=== PATIENT | female | born 1945 | race Caucasian/White ===

== ENCOUNTER 2016-09-05 13:52 | Emergency (ER) | payer MEDICARE, OTHER ==
[2016-09-05] MEDS ORDERED: LORazepam 0.5 MG Tab ONE ×2 (14:00→14:32)
[2016-09-05 14:20] VITALS: BP 144/67
--- NOTE | 2016-09-05 16:42 | ER ---
HISTORY OF PRESENT ILLNESS: A 71-year-old lady here with complaints of feeling depressed. She has been feeling this way for a while, but the last couple of days it has gotten worse. She has no thoughts of harming herself or harming others. She just does not feel good. She does not feel like doing anything, and wants to know if she can get some help. The patient states she is under a fair amount of stress. Her has had some medical issues, it was thought he would not survive last winter, but he did pull through and is actually back home now. The patient has found this whole process quite stressful. Secondly, there are some other family stress factors. Some of her kids have become and she feels sorry for them and the grandchildren. The patient has been taking citalopram for 10 or 12 years. She states that usually it seems like it helps, but she has had other years where springtime has been a sad time for her as well. The patient has not been seen recently for any of these issues. OBJECTIVE: GENERAL APPEARANCE: The patient is awake and alert, slightly quiet, but she does make good eye contact and answers questions appropriately. VITAL SIGNS: Reviewed. Blood pressure 144/67. PHYSICAL EXAM: Otherwise deferred. DIAGNOSIS: Depression with anxiety. TREATMENT PLAN: I advised the patient that she is taking the highest dose of citalopram, she can safely take 40 mg a day. I will add Ativan 0.5 mg. She is to take 1 or 2 tablets every 8 hours. I advised her to take this regularly for the next day or so and then, start going p.r.n. I do want the patient to follow up in the clinic next week for a recheck, and she probably should consider some counseling as well. The patient agrees to do this. She has no further questions. NONA/MODL /[id number]
== END 2016-09-05 14:40 | disposition home or self-care (01) ==
LOC: LB.ED 13:52
DX: F41.8 Other specified anxiety disorders (principal)
CPT/HCPCS: 99282; 99283; A9270

== ENCOUNTER 2018-03-07 22:54 | Emergency (ER) | payer MEDICARE, OTHER ==
[2018-03-07] MEDS ORDERED: Albuterol 8 GM Inhaler INH ONE (23:50)
[2018-03-07] MEDS ORDERED: predniSONE 10 MG Tab ONE (23:50)
[2018-03-07] MEDS: Albuterol/Ipratropium 3.0-0.5 MG/3 ML Neb Soln NEB ONE (23:53)
--- NOTE | 2018-03-08 01:01 | ER ---
HISTORY OF PRESENT ILLNESS: This is a 73-year-old lady who comes in by ambulance with complaints of shortness of breath and coughing. She states she has had a cold for about 3 days, started on Tuesday. When she became short of breath tonight, she got worried and called the ambulance. The patient states her cough is mostly dry. She does feel tight and short of breath especially with coughing. She has not been running a fever to her knowledge. She denies any history of asthma or bronchitis. The patient is a smoker. She does not use any inhaler medication. Ambulance crew reports that her O2 sats were in the mid 80s when they arrived. They did apply oxygen when her sats came up to 99%. The oxygen was removed before arriving at the emergency room, and the patient did not have any respiratory distress after this. OBJECTIVE: GENERAL APPEARANCE: The patient is awake and alert. She has a tight cough that is quite frequent. No shortness of breath at this time. VITAL SIGNS: Reviewed. Blood pressure 150/78, O2 sats are 95% on room air. HEENT: Oral mucous membranes moist. NECK: Supple. LUNGS: Reveal reduced air exchange throughout the lung oneill and wheezes are scattered throughout the lung oneill. Deep breathing does induce coughing as well. CARDIAC: Heart sounds distinct. S1 and S2 present. No murmurs. ABDOMEN: Soft, nontender. Bowel sounds are present. SKIN: Warm and dry. INITIAL TREATMENT: DuoNeb was given to the patient. This significantly improved her lung function. Her air exchange improved and just end-expiratory scattered wheezes now are noted. LAB AND X-RAY: Chest x-ray is obtained. I do not see any obvious pneumonia. LABS: Include a CBC which shows a normal white count and neutrophils are normal. Monos are slightly elevated. Comprehensive metabolic panel is normal. DIAGNOSIS: Asthmatic bronchitis. TREATMENT PLAN: The patient will be discharged home. Her daughter is here with her. She will be given an albuterol inhaler, she is to take 2 puffs every 4 hours as needed for shortness of breath, coughing, or wheezing; and I will give her prednisone 30 mg a day for 3 days, then 20 mg for 2 days, and then 10 mg for 2 days. Followup should be within a couple of days with her primary care provider for recheck or as needed. CRS/MODL /[id number]
[2018-03-08 02:45] VITALS: BP 150/78
--- NOTE | 2018-03-08 08:53 | CR ---
AP PORTABLE CHEST, 03/08/18 Comparison is made to a prior exam dated 09/12/17. The patient is status post median sternotomy. The heart size is normal. There is calcification of the aortic arch. The lungs are mildly hyperexpanded, but clear. No pneumothorax. No pleural effusions. No evidence of acute intrathoracic disease. [id number]
== END 2018-03-08 00:39 | disposition home or self-care (01) ==
LOC: LB.ED 22:54
DX: J45.909 Unspecified asthma, uncomplicated (principal)
CPT/HCPCS: 36415; 71045; 80053; 85025; 99285-25; A0425; A0429; A9270-GY; J7620-GY

== ENCOUNTER 2021-08-04 13:15 | Emergency (ER) | payer MEDICARE, SELFPAY | END 2021-08-04 15:30 | disposition home or self-care (01) | LOC: LB.ED 13:15 | DX: J18.9 Pneumonia, unspecified organism (principal); I25.10 Atherosclerotic heart disease of native coronary artery without angina pectoris; E78.00 Pure hypercholesterolemia, unspecified; I10 Essential (primary) hypertension; Z72.0 Tobacco use; Z88.2 Allergy status to sulfonamides; Z88.8 Allergy status to other drugs, medicaments and biological substances; Z79.82 Long term (current) use of aspirin; Z79.899 Other long term (current) drug therapy; Z20.822 Contact with and (suspected) exposure to COVID-19 | CPT/HCPCS: 71046; 99285-25; U0002 ==

== ENCOUNTER 2022-01-04 01:16 | Emergency (ER) | payer MEDICARE ==
[2022-01-04] MEDS ORDERED: Acetaminophen 500 MG Tab PO ONE (01:48)
[2022-01-04] MEDS ORDERED: Orphenadrine 60 MG/2 ML Inj IM ONE (01:51)
[2022-01-04] MEDS ORDERED: Gabapentin 300 MG Cap PO ONE (01:51)
[2022-01-04] MEDS ORDERED: Dexamethasone 4 MG/ML SDV IVPUSH ONE (01:53)
[2022-01-04] MEDS ORDERED: Sodium Chloride 0.9% 10 ML Syringe FLUSH PRN (01:55)
[2022-01-04] MEDS ORDERED: Ketamine 200 MG/20 ML MDV ONE ×2 (01:57→02:18)
[2022-01-04] MEDS ORDERED: Dexamethasone 4 MG/ML SDV ONE (02:17)
[2022-01-04] MEDS ORDERED: Orphenadrine 60 MG/2 ML Inj ONE (02:28)
== END 2022-01-04 03:20 | disposition home or self-care (01) ==
LOC: LB.ED 01:16
DX: M54.50 Low back pain, unspecified (principal); I25.10 Atherosclerotic heart disease of native coronary artery without angina pectoris; E78.00 Pure hypercholesterolemia, unspecified; I10 Essential (primary) hypertension; Z95.1 Presence of aortocoronary bypass graft; Z88.2 Allergy status to sulfonamides; Z88.8 Allergy status to other drugs, medicaments and biological substances; Z79.82 Long term (current) use of aspirin; Z79.899 Other long term (current) drug therapy
CPT/HCPCS: 96372; 96374; 99282; 99283-25; A0425; A0429; A9270-GY; J1100; J2360; J3490

== ENCOUNTER 2022-01-07 21:55 | Emergency (ER) | payer MEDICARE ==
[2022-01-07] MEDS: Acetaminophen/oxyCODONE 325-5 MG Tab PO PRN ×2 (22:35→22:37)
[2022-01-07] MEDS ORDERED: Acetaminophen/oxyCODONE 325-5 MG Tab ONE (22:47)
== END 2022-01-07 22:47 | disposition home or self-care (01) ==
LOC: LB.ED 21:55
DX: M54.50 Low back pain, unspecified (principal); I25.10 Atherosclerotic heart disease of native coronary artery without angina pectoris; I10 Essential (primary) hypertension; F17.210 Nicotine dependence, cigarettes, uncomplicated; Z88.8 Allergy status to other drugs, medicaments and biological substances; Z88.2 Allergy status to sulfonamides; Z79.899 Other long term (current) drug therapy; Z79.82 Long term (current) use of aspirin
CPT/HCPCS: 99282; 99283; A9270-GY

== ENCOUNTER 2022-01-10 08:39 | Emergency (ER) | payer MEDICARE ==
[2022-01-10] MEDS ORDERED: Sodium Chloride 0.9% 10 ML Syringe FLUSH PRN (10:24)
[2022-01-10] MEDS ORDERED: Sodium Chloride 0.9% 50 ML SDV FLUSH ONE (10:25)
[2022-01-10] MEDS ORDERED: Iopamidol 755 Mg/ML 100 ML Bottle IV SCH (10:30)
[2022-01-10] MEDS ORDERED: Enoxaparin 80 MG/0.8 ML Syringe SUBCUT ONE (11:50)
[2022-01-10 18:24] VITALS: BP 159/80; PULSE 89
== END 2022-01-10 13:50 | disposition home or self-care (01) ==
LOC: LB.ED 08:39
DX: R06.02 Shortness of breath (principal); I25.10 Atherosclerotic heart disease of native coronary artery without angina pectoris; I10 Essential (primary) hypertension; F17.210 Nicotine dependence, cigarettes, uncomplicated; Z88.8 Allergy status to other drugs, medicaments and biological substances; Z88.2 Allergy status to sulfonamides; Z79.899 Other long term (current) drug therapy; Z79.82 Long term (current) use of aspirin
CPT/HCPCS: 36415; 71250; 74176; 80053; 81001; 83690; 84484; 85025; 85379; 93005; 93010; 96372; 99282; 99285; J1650

== ENCOUNTER 2022-01-30 11:16 | Emergency (ER) | payer MEDICARE ==
[2022-01-30] MEDS: LORazepam 1 MG Tab PO ONE (11:57)
== END 2022-01-30 12:03 | disposition home or self-care (01) ==
LOC: LB.ED 11:16
DX: F32.A Depression, unspecified (principal); R45.851 Suicidal ideations; I25.10 Atherosclerotic heart disease of native coronary artery without angina pectoris; E78.00 Pure hypercholesterolemia, unspecified; I10 Essential (primary) hypertension; E03.9 Hypothyroidism, unspecified; Z88.8 Allergy status to other drugs, medicaments and biological substances; Z88.2 Allergy status to sulfonamides; Z79.82 Long term (current) use of aspirin; Z79.899 Other long term (current) drug therapy; Z95.1 Presence of aortocoronary bypass graft; Z87.891 Personal history of nicotine dependence
CPT/HCPCS: 99284; A9270; 99282

== ENCOUNTER 2022-02-04 13:39 | Emergency (ER) | payer MEDICARE ==
[2022-02-04 14:48] VITALS: BP 154/79; PULSE 90
[2022-02-04 15:02] LABS: ESTIMATED GFR 90 mL/min (>60)
== END 2022-02-04 19:42 ==
LOC: LB.ED 13:39
DX: R45.851 Suicidal ideations (principal); F32.A Depression, unspecified; E03.9 Hypothyroidism, unspecified; I10 Essential (primary) hypertension; I25.10 Atherosclerotic heart disease of native coronary artery without angina pectoris; E78.00 Pure hypercholesterolemia, unspecified; Z79.899 Other long term (current) drug therapy; Z20.822 Contact with and (suspected) exposure to COVID-19; Z88.2 Allergy status to sulfonamides; Z88.8 Allergy status to other drugs, medicaments and biological substances
CPT/HCPCS: 36415; 80053; 80307; 81003; 85025; 99284; U0002

== ENCOUNTER 2022-02-17 18:10 | Emergency (ER) | payer MEDICARE ==
[2022-02-17] MEDS ORDERED: LORazepam 1 MG Tab ONE (18:30)
[2022-02-17] MEDS ORDERED: LORazepam 1 MG Tab PO ONE (18:46)
== END 2022-02-17 18:45 | disposition home or self-care (01) ==
LOC: LB.ED 18:10
DX: F32.9 Major depressive disorder, single episode, unspecified (principal); F41.9 Anxiety disorder, unspecified; I25.10 Atherosclerotic heart disease of native coronary artery without angina pectoris; J44.9 Chronic obstructive pulmonary disease, unspecified; I10 Essential (primary) hypertension; E78.00 Pure hypercholesterolemia, unspecified; Z88.2 Allergy status to sulfonamides; Z88.8 Allergy status to other drugs, medicaments and biological substances; Z79.899 Other long term (current) drug therapy; Z79.82 Long term (current) use of aspirin
CPT/HCPCS: 99283; A9270-GY

== ENCOUNTER 2022-04-30 09:17 | Emergency (ER) | payer MEDICARE ==
[2022-04-30] MEDS: Albuterol/Ipratropium 3.0-0.5 MG/3 ML Neb Soln ONE ×2 (10:00→10:57)
[2022-04-30] MEDS ORDERED: Albuterol/Ipratropium 3.0-0.5 MG/3 ML Neb Soln NEB STA (11:02)
[2022-04-30] MEDS ORDERED: Azithromycin 250 MG Tab ONE (23:00)
== END 2022-04-30 11:20 | disposition home or self-care (01) ==
LOC: LB.ED 09:17 → SUPCPDRO 09:17 → LB.ED 11:20
DX: J44.1 Chronic obstructive pulmonary disease with (acute) exacerbation (principal); F17.210 Nicotine dependence, cigarettes, uncomplicated; I25.10 Atherosclerotic heart disease of native coronary artery without angina pectoris; E78.00 Pure hypercholesterolemia, unspecified; I10 Essential (primary) hypertension; E03.9 Hypothyroidism, unspecified; Z95.1 Presence of aortocoronary bypass graft; Z88.2 Allergy status to sulfonamides; Z88.8 Allergy status to other drugs, medicaments and biological substances; Z79.82 Long term (current) use of aspirin; Z79.899 Other long term (current) drug therapy; Z20.822 Contact with and (suspected) exposure to COVID-19
CPT/HCPCS: 36415; 71045; 80048; 83735; 83880; 84484; 85027; 94640; 99285; A9270-GY; J7620; U0002

== ENCOUNTER 2022-10-29 15:52 | Emergency (ER) | payer MEDICARE ==
[2022-10-29] MEDS ORDERED: Sodium Chloride 0.9% 10 ML Syringe FLUSH PRN (17:02)
[2022-10-29 17:14] LABS: HEMATOCRIT 38.6 % (37.0-47.0); HEMOGLOBIN 13.3 g/dL (11.5-16.5); MEAN CORPUSCULAR HEMOGLOBIN 33.2 pg (27.0-32.0); MEAN CORPUSCULAR HGB CONC 34.5 g/dL (31.0-35.0); MEAN PLATELET VOLUME 10.4 fL (6.0-10.0); RED BLOOD CELL COUNT 4.01 M/uL (3.80-5.80); RED CELL DISTRIBUTION WIDTH 14.1 % (11.0-16.0); WHITE BLOOD CELL COUNT,WBC 10.3 K/uL (4.0-11.0)
[2022-10-29] MEDS ORDERED: Albuterol/Ipratropium 3.0-0.5 MG/3 ML Neb Soln NEB STA (17:34)
[2022-10-29] MEDS ORDERED: Albuterol/Ipratropium 3.0-0.5 MG/3 ML Neb Soln ONE (17:37)
[2022-10-29 17:43] LABS: CALCIUM 8.8 mg/dL (8.5-10.1); CARBON DIOXIDE,CO2 28.9 mmol/L (21.0-32.0); CREATININE 0.81 mg/dL (0.55-1.02); EST CRCL DRUG DOSING (CG) 51.02 mL/min; MAGNESIUM 1.8 mg/dL (1.8-2.4); PHOSPHORUS 3.6 mg/dL (2.5-4.9); POTASSIUM,K 3.9 mmol/L (3.5-5.1); TROPONIN I HIGH SENSITIVITY 10.4 pg/ml (<=60.4)
== END 2022-10-29 19:20 | disposition home or self-care (01) ==
LOC: LB.ED 15:52
DX: J44.1 Chronic obstructive pulmonary disease with (acute) exacerbation (principal); E78.00 Pure hypercholesterolemia, unspecified; I10 Essential (primary) hypertension; E03.9 Hypothyroidism, unspecified; F17.210 Nicotine dependence, cigarettes, uncomplicated; Z88.2 Allergy status to sulfonamides; Z88.8 Allergy status to other drugs, medicaments and biological substances; Z79.82 Long term (current) use of aspirin; Z79.899 Other long term (current) drug therapy
CPT/HCPCS: 36415; 71045; 80048; 83735; 83880; 84100; 84484; 85027; 85379; 93005; 94640; 99285; J7620

== ENCOUNTER 2023-05-26 09:49 | Day surgery (SDC) | payer MEDICARE ==
[~2023-05-26 09:49] MED LIST: Metoclopramide 10 MG/2 ML SDV IV PRN
[2023-05-26] MEDS: Sodium Chloride 0.9% 1,000 ML IV SCH (10:48)
[2023-05-26] MEDS ORDERED: Propofol 1,000 MG/100 ML SDV ONE (11:30)
[2023-05-26 11:49] VITALS: BP 148/81; PULSE 56
== END 2023-05-26 12:56 | disposition home or self-care (01) ==
LOC: LB.SDS 09:49
PROVIDERS: ATTEND Surgery
DX: R19.7 Diarrhea, unspecified (principal); J44.9 Chronic obstructive pulmonary disease, unspecified; I10 Essential (primary) hypertension; I25.810 Atherosclerosis of coronary artery bypass graft(s) without angina pectoris; E78.5 Hyperlipidemia, unspecified; F33.9 Major depressive disorder, recurrent, unspecified; E03.8 Other specified hypothyroidism; Z95.1 Presence of aortocoronary bypass graft; Z79.890 Hormone replacement therapy; Z79.82 Long term (current) use of aspirin; Z79.899 Other long term (current) drug therapy; Z88.2 Allergy status to sulfonamides; Z88.5 Allergy status to narcotic agent
CPT/HCPCS: J2704; J7030

== ENCOUNTER 2023-05-31 07:14 | Emergency (ER) | payer MEDICARE ==
[2023-05-31] MEDS ORDERED: Furosemide 20 MG Tab PO ONE (07:35)
[2023-05-31 08:05] LABS: BASOPHILS ABSOLUTE AUTO 0.04 K/uL (0.02-0.10); BASOPHILS PERCENT AUTO 0.4 % (0.0-0.5); EOSINOPHILS ABSOLUTE AUTO 0.24 K/uL (0.04-0.40); EOSINOPHILS PERCENT AUTO 2.6 % (1.0-5.0); HEMATOCRIT 37.3 % (37.0-47.0); HEMOGLOBIN 12.3 g/dL (11.5-16.5); LYMPHOCYTES ABSOLUTE AUTO 1.87 K/uL (1.50-4.00); LYMPHOCYTES PERCENT AUTO 20.5 % (20.0-40.0); MEAN CORPUSCULAR HEMOGLOBIN 32.1 pg (27.0-32.0); MEAN CORPUSCULAR VOLUME 97 fL (76-96); MEAN PLATELET VOLUME 10.9 fL (6.0-10.0); MONOCYTES PERCENT AUTO 8.8 % (3.0-10.0); NEUTROPHILS ABSOLUTE AUTO 6.17 K/uL (2.00-7.50); NEUTROPHILS PERCENT AUTO 67.7 % (45.0-70.0); PLATELET COUNT,PLT 146 K/uL (150-500); RED BLOOD CELL COUNT 3.83 M/uL (3.80-5.80); RED CELL DISTRIBUTION WIDTH 13.6 % (11.0-16.0); WHITE BLOOD CELL COUNT,WBC 9.1 K/uL (4.0-11.0)
[2023-05-31 08:36] LABS: A/G RATIO 0.9 (0.8-2.0); ANION GAP 12.2 mmol/L (5.0-15.0); BILIRUBIN TOTAL 1.2 mg/dL (0.0-1.0); CALCIUM 8.9 mg/dL (8.5-10.1); CARBON DIOXIDE,CO2 27.5 mmol/L (21.0-32.0); CREATININE 0.63 mg/dL (0.55-1.02); EST CRCL DRUG DOSING (CG) 61.86 mL/min; POTASSIUM,K 3.7 mmol/L (3.5-5.1); PROTEIN TOTAL,TP 6.3 g/dL (6.4-8.2)
== END 2023-05-31 09:18 | disposition home or self-care (01) ==
LOC: LB.ED 07:14
DX: R79.89 Other specified abnormal findings of blood chemistry (principal); R60.0 Localized edema; I10 Essential (primary) hypertension; E78.00 Pure hypercholesterolemia, unspecified; J44.9 Chronic obstructive pulmonary disease, unspecified; I25.10 Atherosclerotic heart disease of native coronary artery without angina pectoris; E03.9 Hypothyroidism, unspecified; Z79.82 Long term (current) use of aspirin; Z90.710 Acquired absence of both cervix and uterus; Z88.8 Allergy status to other drugs, medicaments and biological substances; Z88.2 Allergy status to sulfonamides; Z79.899 Other long term (current) drug therapy
CPT/HCPCS: 36415; 80053; 83880; 85025; 99283; A9270-GY

== ENCOUNTER 2023-07-16 23:43 | Emergency (ER) | payer MEDICARE ==
[2023-07-16] MEDS ORDERED: Sodium Chloride 0.9% 10 ML Syringe FLUSH PRN (23:56)
[2023-07-17 00:26] LABS: BASOPHILS ABSOLUTE AUTO 0.05 K/uL (0.02-0.10); BASOPHILS PERCENT AUTO 0.4 % (0.0-0.5); EOSINOPHILS PERCENT AUTO 1.7 % (1.0-5.0); HEMATOCRIT 34.3 % (37.0-47.0); HEMOGLOBIN 12.3 g/dL (11.5-16.5); LYMPHOCYTES ABSOLUTE AUTO 1.89 K/uL (1.50-4.00); LYMPHOCYTES PERCENT AUTO 16.1 % (20.0-40.0); MEAN CORPUSCULAR HEMOGLOBIN 31.7 pg (27.0-32.0); MEAN CORPUSCULAR HGB CONC 35.9 g/dL (31.0-35.0); MEAN CORPUSCULAR VOLUME 88 fL (76-96); MEAN PLATELET VOLUME 9.7 fL (6.0-10.0); MONOCYTES ABSOLUTE AUTO 0.81 K/uL (0.20-0.80); MONOCYTES PERCENT AUTO 6.9 % (3.0-10.0); NEUTROPHILS ABSOLUTE AUTO 8.82 K/uL (2.00-7.50); NEUTROPHILS PERCENT AUTO 74.9 % (45.0-70.0); PLATELET COUNT,PLT 216 K/uL (150-500); RED BLOOD CELL COUNT 3.88 M/uL (3.80-5.80); RED CELL DISTRIBUTION WIDTH 13.5 % (11.0-16.0); WHITE BLOOD CELL COUNT,WBC 11.8 K/uL (4.0-11.0)
[2023-07-17 00:41] LABS: ALBUMIN 3.4 g/dL (3.4-5.0); ANION GAP 10.9 mmol/L (5.0-15.0); BILIRUBIN TOTAL 0.6 mg/dL (0.0-1.0); BUN/CREATININE RATIO 29.8 (6-25); CALCIUM 9.2 mg/dL (8.5-10.1); CARBON DIOXIDE,CO2 29.2 mmol/L (21.0-32.0); CREATININE 1.04 mg/dL (0.55-1.02); EST CRCL DRUG DOSING (CG) 35.83 mL/min; POTASSIUM,K 4.1 mmol/L (3.5-5.1); PROTEIN TOTAL,TP 6.9 g/dL (6.4-8.2)
== END 2023-07-17 03:07 | disposition home or self-care (01) ==
LOC: LB.ED 23:43
DX: R07.89 Other chest pain (principal); I10 Essential (primary) hypertension; I25.10 Atherosclerotic heart disease of native coronary artery without angina pectoris; J44.9 Chronic obstructive pulmonary disease, unspecified; E78.00 Pure hypercholesterolemia, unspecified; E03.9 Hypothyroidism, unspecified; F17.210 Nicotine dependence, cigarettes, uncomplicated; Z88.2 Allergy status to sulfonamides; Z88.8 Allergy status to other drugs, medicaments and biological substances; Z79.82 Long term (current) use of aspirin; Z79.899 Other long term (current) drug therapy; Z90.710 Acquired absence of both cervix and uterus
CPT/HCPCS: 36415; 71045; 80053; 84484; 85025; 93005; 93010; 99283; 99285; A0425; A0429

== ENCOUNTER 2023-07-22 09:58 | Emergency (ER) | payer MEDICARE ==
[2023-07-22] MEDS: Albuterol/Ipratropium 3.0-0.5 MG/3 ML Neb Soln NEB PRN (10:29)
[2023-07-22 11:02] LABS: BASOPHILS ABSOLUTE AUTO 0.06 K/uL (0.02-0.10); BASOPHILS PERCENT AUTO 0.6 % (0.0-0.5); EOSINOPHILS ABSOLUTE AUTO 0.37 K/uL (0.04-0.40); EOSINOPHILS PERCENT AUTO 3.4 % (1.0-5.0); HEMATOCRIT 38.9 % (37.0-47.0); HEMOGLOBIN 13.5 g/dL (11.5-16.5); LYMPHOCYTES ABSOLUTE AUTO 2.03 K/uL (1.50-4.00); LYMPHOCYTES PERCENT AUTO 18.7 % (20.0-40.0); MEAN CORPUSCULAR HEMOGLOBIN 32.1 pg (27.0-32.0); MEAN CORPUSCULAR HGB CONC 34.7 g/dL (31.0-35.0); MEAN CORPUSCULAR VOLUME 92 fL (76-96); MEAN PLATELET VOLUME 10.1 fL (6.0-10.0); MONOCYTES ABSOLUTE AUTO 0.96 K/uL (0.20-0.80); MONOCYTES PERCENT AUTO 8.9 % (3.0-10.0); NEUTROPHILS ABSOLUTE AUTO 7.42 K/uL (2.00-7.50); NEUTROPHILS PERCENT AUTO 68.4 % (45.0-70.0); PLATELET COUNT,PLT 230 K/uL (150-500); RED BLOOD CELL COUNT 4.21 M/uL (3.80-5.80); RED CELL DISTRIBUTION WIDTH 13.7 % (11.0-16.0); WHITE BLOOD CELL COUNT,WBC 10.8 K/uL (4.0-11.0)
[2023-07-22 11:27] LABS: ANION GAP 11.3 mmol/L (5.0-15.0); CALCIUM 9.4 mg/dL (8.5-10.1); CARBON DIOXIDE,CO2 30.5 mmol/L (21.0-32.0); CREATININE 0.94 mg/dL (0.55-1.02); EST CRCL DRUG DOSING (CG) 39.64 mL/min; POTASSIUM,K 4.8 mmol/L (3.5-5.1)
[2023-07-22] MEDS: Iopamidol 755 Mg/ML 100 ML Bottle IV PRN (12:50)
[2023-07-22] MEDS: Sodium Chloride 0.9% 50 ML SDV FLUSH SCH (12:50)
[2023-07-22 14:09] VITALS: BP 146/64; PULSE 70
== END 2023-07-22 14:30 | disposition home or self-care (01) ==
LOC: LB.ED 09:58
DX: J44.1 Chronic obstructive pulmonary disease with (acute) exacerbation (principal); I25.2 Old myocardial infarction; Z95.1 Presence of aortocoronary bypass graft; Z88.2 Allergy status to sulfonamides; Z88.8 Allergy status to other drugs, medicaments and biological substances; Z87.891 Personal history of nicotine dependence; Z79.899 Other long term (current) drug therapy
CPT/HCPCS: 36415; 71046; 71260; 80048; 83880; 84484; 85025; 85379; 93005; 94640; 99284; 99285; J3490; J7620; Q9967

== ENCOUNTER 2023-08-01 22:18 | Emergency (ER) | payer MEDICARE ==
[2023-08-01 22:48] LABS: BASOPHILS ABSOLUTE AUTO 0.06 K/uL (0.02-0.10); BASOPHILS PERCENT AUTO 0.5 % (0.0-0.5); EOSINOPHILS ABSOLUTE AUTO 0.53 K/uL (0.04-0.40); EOSINOPHILS PERCENT AUTO 4.4 % (1.0-5.0); HEMATOCRIT 42.5 % (37.0-47.0); HEMOGLOBIN 13.9 g/dL (11.5-16.5); LYMPHOCYTES ABSOLUTE AUTO 2.86 K/uL (1.50-4.00); LYMPHOCYTES PERCENT AUTO 23.9 % (20.0-40.0); MEAN CORPUSCULAR HEMOGLOBIN 32.4 pg (27.0-32.0); MEAN CORPUSCULAR HGB CONC 32.7 g/dL (31.0-35.0); MEAN CORPUSCULAR VOLUME 99 fL (76-96); MEAN PLATELET VOLUME 11.2 fL (6.0-10.0); MONOCYTES ABSOLUTE AUTO 0.97 K/uL (0.20-0.80); MONOCYTES PERCENT AUTO 8.1 % (3.0-10.0); NEUTROPHILS ABSOLUTE AUTO 7.57 K/uL (2.00-7.50); NEUTROPHILS PERCENT AUTO 63.1 % (45.0-70.0); PLATELET COUNT,PLT 237 K/uL (150-500); RED BLOOD CELL COUNT 4.29 M/uL (3.80-5.80); RED CELL DISTRIBUTION WIDTH 13.5 % (11.0-16.0)
[2023-08-01] MEDS: Albuterol/Ipratropium 3.0-0.5 MG/3 ML Neb Soln ONE (22:50)
[2023-08-01 22:57] LABS: ANION GAP 12.4 mmol/L (5.0-15.0); BLOOD UREA NITROGEN,BUN 29 mg/dL (8-26); BUN/CREATININE RATIO 30.9 (6-25); CALCIUM 9.7 mg/dL (8.5-10.1); CARBON DIOXIDE,CO2 33.5 mmol/L (21.0-32.0); CHLORIDE,CL 97 mmol/L (98-107); CREATININE 0.94 mg/dL (0.55-1.02); ESTIMATED GFR 63 mL/min (>60); GLUCOSE RANDOM 128 mg/dL (74-100); POTASSIUM,K 4.9 mmol/L (3.5-5.1); SODIUM,NA 138 mmol/L (136-145)
[2023-08-01] MEDS: Albuterol 0.083% 2.5 MG/3 ML Neb Soln NEB ONE (23:14)
[2023-08-01 23:24] LABS: MAGNESIUM 2.1 mg/dL (1.8-2.4); PHOSPHORUS 4.4 mg/dL (2.5-4.9)
[2023-08-02] MEDS: Albuterol 0.083% 2.5 MG/3 ML Neb Soln ONE (00:07)
[2023-08-02] MEDS: Acetaminophen 500 MG Tab PO ONE (01:30)
[2023-08-02] MEDS: diphenhydrAMINE 50 MG Cap PO ONE (01:30)
[2023-08-02] MEDS: diphenhydrAMINE 50 MG Cap ONE (09:44)
[2023-08-02] MEDS: Acetaminophen 500 MG Tab ONE (09:45)
[2023-08-02] MEDS: Carvedilol 3.125 MG Tab PO ONE (10:13)
[2023-08-02] MEDS: FLUoxetine 10 MG Cap PO ONE (10:15)
[2023-08-02] MEDS: Amoxicillin/Clavulanate K 875-125 MG Tab PO ONE (10:15)
[2023-08-02] MEDS: Albuterol/Ipratropium 3.0-0.5 MG/3 ML Neb Soln NEB SCH (11:10)
[2023-08-02] MEDS: Acetaminophen 325 MG Tab PO ONE (11:34)
[2023-08-03] MEDS: Albuterol/Ipratropium 3.0-0.5 MG/3 ML Neb Soln ONE (08:35)
[2023-08-03] MEDS: Acetaminophen 325 MG Tab ONE (08:35)
== END 2023-08-02 13:00 ==
LOC: LB.ED 22:18
DX: J44.1 Chronic obstructive pulmonary disease with (acute) exacerbation (principal); F41.8 Other specified anxiety disorders; R79.89 Other specified abnormal findings of blood chemistry; F17.210 Nicotine dependence, cigarettes, uncomplicated; I10 Essential (primary) hypertension; E78.00 Pure hypercholesterolemia, unspecified; I25.10 Atherosclerotic heart disease of native coronary artery without angina pectoris; E03.9 Hypothyroidism, unspecified; Z79.82 Long term (current) use of aspirin; Z79.02 Long term (current) use of antithrombotics/antiplatelets; Z88.8 Allergy status to other drugs, medicaments and biological substances; Z88.2 Allergy status to sulfonamides; Z79.899 Other long term (current) drug therapy; Z79.51 Long term (current) use of inhaled steroids; Z95.1 Presence of aortocoronary bypass graft
CPT/HCPCS: 36415; 71045; 80048; 83735; 83880; 84100; 84443; 84484; 85025; 85379; 93005; 93010; 94640; 97161-GP; 99284; 99285; A9270-GY; J7620

== ENCOUNTER 2023-08-29 20:13 | Emergency (ER) | payer MEDICARE ==
[2023-08-29] MEDS: Ondansetron 4 MG/2 ML SDV IVPUSH ONE (20:37)
[2023-08-29 21:03] LABS: BASOPHILS ABSOLUTE AUTO 0.03 K/uL (0.02-0.10); BASOPHILS PERCENT AUTO 0.3 % (0.0-0.5); EOSINOPHILS ABSOLUTE AUTO 0.18 K/uL (0.04-0.40); EOSINOPHILS PERCENT AUTO 1.8 % (1.0-5.0); HEMOGLOBIN 13.5 g/dL (11.5-16.5); LYMPHOCYTES ABSOLUTE AUTO 2.49 K/uL (1.50-4.00); LYMPHOCYTES PERCENT AUTO 24.9 % (20.0-40.0); MEAN CORPUSCULAR HEMOGLOBIN 32.3 pg (27.0-32.0); MEAN CORPUSCULAR HGB CONC 33.8 g/dL (31.0-35.0); MEAN CORPUSCULAR VOLUME 96 fL (76-96); MEAN PLATELET VOLUME 10.8 fL (6.0-10.0); MONOCYTES ABSOLUTE AUTO 1.07 K/uL (0.20-0.80); MONOCYTES PERCENT AUTO 10.7 % (3.0-10.0); NEUTROPHILS ABSOLUTE AUTO 6.21 K/uL (2.00-7.50); NEUTROPHILS PERCENT AUTO 62.3 % (45.0-70.0); PLATELET COUNT,PLT 270 K/uL (150-500); RED BLOOD CELL COUNT 4.18 M/uL (3.80-5.80); RED CELL DISTRIBUTION WIDTH 13.1 % (11.0-16.0)
[2023-08-29] MEDS ORDERED: Sodium Chloride 0.9% 10 ML Syringe FLUSH PRN (21:11)
[2023-08-29] MEDS: Aspirin 81 MG Tab.Chew PO ONE (21:13)
[2023-08-29 21:17] LABS: PROTHROMBIN TIME 10.1 sec (9.0-11.5)
[2023-08-29 21:24] LABS: APPEARANCE,URINE CLEAR (CLEAR); BILIRUBIN,URINE NEGATIVE (NEGATIVE); COLOR,URINE YELLOW; GLUCOSE,URINE NEGATIVE (NEGATIVE); KETONES,URINE NEGATIVE (NEGATIVE); LEUKOCYTE ESTERASE,URINE NEGATIVE (NEGATIVE); NITRITE,URINE NEGATIVE (NEGATIVE); OCCULT BLOOD,URINE NEGATIVE (NEGATIVE); PH,URINE 5.5 (5.0-8.0); PROTEIN,URINE NEGATIVE (NEGATIVE); UROBILINOGEN,URINE 0.2 E.U./dL (0.2-1.0)
[2023-08-29 21:25] LABS: BASE EXCESS VENOUS -0.8 mm/L (-2-3); BICARBONATE,VENOUS 24.9 mmol/L (23.0-28.0); PH,VENOUS 7.35 (7.31-7.41)
[2023-08-29 21:26] LABS: A/G RATIO 1.2 (0.8-2.0); ALBUMIN 3.8 g/dL (3.4-5.0); ANION GAP 12.8 mmol/L (5.0-15.0); BILIRUBIN TOTAL 0.9 mg/dL (0.0-1.0); BUN/CREATININE RATIO 29.7 (6-25); CALCIUM 9.2 mg/dL (8.5-10.1); CARBON DIOXIDE,CO2 27.7 mmol/L (21.0-32.0); CREATININE 0.91 mg/dL (0.55-1.02); EST CRCL DRUG DOSING (CG) 40.95 mL/min; POTASSIUM,K 4.5 mmol/L (3.5-5.1); PROTEIN TOTAL,TP 6.9 g/dL (6.4-8.2)
[2023-08-29 21:33] LABS: AMPHETAMINES SCREEN, URINE NEGATIVE (NEGATIVE); BARBITURATE SCREEN,URINE NEGATIVE (NEGATIVE); BENZODIAZEPINES SCREEN,URINE POSITIVE (NEGATIVE); METHAMPHETAMINES SCREEN, URINE NEGATIVE (NEGATIVE)
[2023-08-29 21:34] LABS: METHADONE SCREEN, URINE NEGATIVE (NEGATIVE); OXYCODONE SCREEN,URINE NEGATIVE (NEGATIVE); THC SCREEN,URINE 50 NG/ML NEGATIVE (NEGATIVE)
[2023-08-29 21:46] LABS: RBC,URINE 0-5 /HPF; SQUAMOUS EPITHELIAL CELLS,UR OCCASIONAL /HPF; WBC,URINE 0-5 /HPF
[2023-08-29] MEDS: Sodium Chloride 0.9% 1,000 ML IV ONE (21:52)
[2023-08-29] MEDS ORDERED: Albuterol/Ipratropium 3.0-0.5 MG/3 ML Neb Soln INH PRN ×2 (22:03→22:22)
[2023-08-29] MEDS ORDERED: LORazepam 0.5 MG Tab PO PRN ×2 (22:03→22:27)
[2023-08-29] MEDS ORDERED: GUM PO SCH ×2 (22:15→22:45)
[2023-08-29] MEDS ORDERED: NICOTINE POLACRILEX 4 MG PO SCH ×2 (22:15→22:45)
[2023-08-29] MEDS ORDERED: Non-Formulary Medication 1 Each (Budesonide/Formoterol [Symbicort 160-4.5 Mcg Inhaler (6 G INH SCH (22:15)
[2023-08-30] MEDS: Acetaminophen 325 MG Tab PO ONE (01:16)
[2023-08-30] MEDS: diphenhydrAMINE 50 MG Cap PO ONE (01:17)
[2023-08-30] MEDS: Pantoprazole 40 MG Vial IVPUSH ONE (01:17)
[2023-08-30] MEDS: Formoterol/Mometasone 200-5 MCG 8.8 GM Inhaler IH SCH (07:34)
[2023-08-30] MEDS ORDERED: DULoxetine 20 MG Cap PO SCH (08:00)
[2023-08-30] MEDS ORDERED: FLUoxetine 10 MG Cap PO SCH (08:00)
[2023-08-30] MEDS ORDERED: Losartan 50 MG Tab PO SCH ×2 (08:00)
[2023-08-30] MEDS ORDERED: Levothyroxine 88 MCG Tab PO SCH (08:00)
[2023-08-30] MEDS ORDERED: Carvedilol 3.125 MG Tab PO SCH (08:00)
[2023-08-30] MEDS: Carvedilol 3.125 MG Tab PO SCH (08:20)
[2023-08-30] MEDS: Levothyroxine 88 MCG Tab PO SCH (08:20)
[2023-08-30] MEDS: FLUoxetine 10 MG Cap PO SCH (08:20)
[2023-08-30] MEDS: Acetaminophen 500 MG Tab PO SCH (08:20)
[2023-08-30] MEDS: DULoxetine 60 MG Cap PO SCH (08:20)
[2023-08-30] MEDS: FLUoxetine 20 MG Cap PO SCH (08:20)
[2023-08-30] MEDS ORDERED: diphenhydrAMINE 25 MG Cap PO SCH (20:00)
[2023-08-30] MEDS ORDERED: Acetaminophen 500 MG Tab PO SCH (20:00)
== END 2023-08-30 08:35 | disposition home or self-care (01) ==
LOC: LB.ED 20:13 → UNDOADMOB 21:55 → LB.MS 21:55
PROVIDERS: ADMIT Physician Assistant; ATTEND Physician Assistant
DX: K29.20 Alcoholic gastritis without bleeding (principal); F10.120 Alcohol abuse with intoxication, uncomplicated; R40.4 Transient alteration of awareness; I10 Essential (primary) hypertension; E78.00 Pure hypercholesterolemia, unspecified; J44.9 Chronic obstructive pulmonary disease, unspecified; E03.9 Hypothyroidism, unspecified; Z95.1 Presence of aortocoronary bypass graft; Z88.8 Allergy status to other drugs, medicaments and biological substances; Z88.2 Allergy status to sulfonamides; Z79.82 Long term (current) use of aspirin; Z79.51 Long term (current) use of inhaled steroids; Z79.899 Other long term (current) drug therapy; Y90.9 Presence of alcohol in blood, level not specified; Z90.710 Acquired absence of both cervix and uterus
CPT/HCPCS: 36415; 51702; 70450; 71250; 74176; 80053; 80307; 81001; 82140; 82803; 83605; 83735; 83880; 84484; 85025; 85610; 85730; 93005; 93010; 96361; 96374; 96375; 99284; 99285-25; A9270-GY; C9113; G0378; J2405; J7030

== ENCOUNTER 2023-09-19 16:09 | Emergency (ER) | payer MEDICARE ==
[2023-09-19] MEDS ORDERED: Sodium Chloride 0.9% 10 ML Syringe FLUSH PRN (16:21)
[2023-09-19 16:47] LABS: HEMATOCRIT 39.7 % (37.0-47.0); HEMOGLOBIN 13.3 g/dL (11.5-16.5); MEAN CORPUSCULAR HEMOGLOBIN 32.6 pg (27.0-32.0); MEAN CORPUSCULAR HGB CONC 33.5 g/dL (31.0-35.0); MEAN PLATELET VOLUME 10.7 fL (6.0-10.0); RED BLOOD CELL COUNT 4.08 M/uL (3.80-5.80); RED CELL DISTRIBUTION WIDTH 13.3 % (11.0-16.0); WHITE BLOOD CELL COUNT,WBC 9.1 K/uL (4.0-11.0)
[2023-09-19 16:59] LABS: ALBUMIN 3.7 g/dL (3.4-5.0); ANION GAP 10.4 mmol/L (5.0-15.0); BILIRUBIN TOTAL 0.7 mg/dL (0.0-1.0); BUN/CREATININE RATIO 29.4 (6-25); CALCIUM 9.5 mg/dL (8.5-10.1); CARBON DIOXIDE,CO2 30.9 mmol/L (21.0-32.0); CREATININE 1.09 mg/dL (0.55-1.02); EST CRCL DRUG DOSING (CG) 37.32 mL/min; MAGNESIUM 1.9 mg/dL (1.8-2.4); PHOSPHORUS 4.3 mg/dL (2.5-4.9); POTASSIUM,K 5.3 mmol/L (3.5-5.1); PROTEIN TOTAL,TP 7.4 g/dL (6.4-8.2)
[2023-09-19 17:08] LABS: TSH ULTRASENSITIVE 3.108 uIU/mL (0.358-3.740)
[2023-09-19] MEDS: Ketamine 200 MG/20 ML MDV ONE (18:01)
[2023-09-19] MEDS: Ondansetron 4 MG/2 ML SDV ONE (18:04)
[2023-09-19] MEDS: Ondansetron 4 MG Tab.DIS ONE (18:04)
[2023-09-19] MEDS: Ondansetron 4 MG Tab.DIS PO SCH (18:05)
[2023-09-19] MEDS: Ketamine 200 MG/20 ML MDV IV ONE (18:05)
[2023-09-19] MEDS: Sodium Chloride 0.9% 500 ML IV ONE (18:05)
[2023-09-19] MEDS: Albuterol/Ipratropium 3.0-0.5 MG/3 ML Neb Soln NEB SCH (20:28)
[2023-09-19] MEDS: Albuterol/Ipratropium 3.0-0.5 MG/3 ML Neb Soln ONE (20:28)
[2023-09-19] MEDS: LORazepam 2 MG/ML SDV IVPUSH ONE (20:42)
[2023-09-19] MEDS: LORazepam 2 MG/ML SDV ONE (20:51)
[2023-09-19] MEDS: Albuterol 0.083% 2.5 MG/3 ML Neb Soln NEB ONE (20:53)
[2023-09-19] MEDS: Albuterol 0.083% 2.5 MG/3 ML Neb Soln ONE (22:13)
[2023-09-19 22:19] VITALS: BP 111/72; PULSE 89
== END 2023-09-19 22:30 | disposition home or self-care (01) ==
LOC: LB.ED 16:09
DX: F41.8 Other specified anxiety disorders (principal); I10 Essential (primary) hypertension; I25.10 Atherosclerotic heart disease of native coronary artery without angina pectoris; M19.90 Unspecified osteoarthritis, unspecified site; J44.9 Chronic obstructive pulmonary disease, unspecified; E78.00 Pure hypercholesterolemia, unspecified; E03.9 Hypothyroidism, unspecified; Z88.2 Allergy status to sulfonamides; Z88.8 Allergy status to other drugs, medicaments and biological substances; Z79.82 Long term (current) use of aspirin; Z79.899 Other long term (current) drug therapy; Z90.710 Acquired absence of both cervix and uterus
CPT/HCPCS: 36415; 71045; 80053; 83605; 83735; 83880; 84100; 84443; 85027; 93005; 93010; 96365; 96375; 99284; 99285-25; J2060; J7040; J7620; Q0162

== ENCOUNTER 2023-09-21 11:52 | Emergency (ER) | payer MEDICARE ==
[2023-09-21] MEDS ORDERED: Sodium Chloride 0.9% 1,000 ML IV SCH (14:15)
[2023-09-21] MEDS: Ketamine 200 MG/20 ML MDV ONE (14:20)
[2023-09-21] MEDS: Ketamine 200 MG/20 ML MDV IV SCH (14:24)
[2023-09-21] MEDS: Sodium Chloride 0.9% 500 ML IV ONE (14:24)
== END 2023-09-21 18:00 | disposition home or self-care (01) ==
LOC: LB.ED 11:52
DX: F41.8 Other specified anxiety disorders (principal); I10 Essential (primary) hypertension; E78.00 Pure hypercholesterolemia, unspecified; I25.10 Atherosclerotic heart disease of native coronary artery without angina pectoris; J44.9 Chronic obstructive pulmonary disease, unspecified; E03.9 Hypothyroidism, unspecified; F17.210 Nicotine dependence, cigarettes, uncomplicated; Z88.8 Allergy status to other drugs, medicaments and biological substances; Z88.2 Allergy status to sulfonamides; Z79.82 Long term (current) use of aspirin; Z79.899 Other long term (current) drug therapy; Z95.1 Presence of aortocoronary bypass graft; Z90.710 Acquired absence of both cervix and uterus; Z60.4 Social exclusion and rejection
CPT/HCPCS: 96365; 99283; J7040

== ENCOUNTER 2023-11-04 18:45 | Emergency (ER) | payer MEDICARE | END 2023-11-04 22:00 | disposition home or self-care (01) | LOC: LB.ED 18:45 | DX: F41.8 Other specified anxiety disorders (principal); I10 Essential (primary) hypertension; I25.10 Atherosclerotic heart disease of native coronary artery without angina pectoris; J44.9 Chronic obstructive pulmonary disease, unspecified; M19.90 Unspecified osteoarthritis, unspecified site; E78.00 Pure hypercholesterolemia, unspecified; E03.9 Hypothyroidism, unspecified; Z88.2 Allergy status to sulfonamides; Z88.8 Allergy status to other drugs, medicaments and biological substances; Z79.82 Long term (current) use of aspirin; Z79.890 Hormone replacement therapy; Z79.899 Other long term (current) drug therapy; Z90.710 Acquired absence of both cervix and uterus | CPT/HCPCS: 99283; 99284 ==

== ENCOUNTER 2023-11-20 13:56 | Emergency (ER) | payer MEDICARE ==
[2023-11-20 15:10] LABS: BASOPHILS ABSOLUTE AUTO 0.02 K/uL (0.02-0.10); BASOPHILS PERCENT AUTO 0.2 % (0.0-0.5); EOSINOPHILS PERCENT AUTO 1.1 % (1.0-5.0); HEMATOCRIT 37.9 % (37.0-47.0); HEMOGLOBIN 12.7 g/dL (11.5-16.5); LYMPHOCYTES ABSOLUTE AUTO 1.69 K/uL (1.50-4.00); LYMPHOCYTES PERCENT AUTO 18.5 % (20.0-40.0); MEAN CORPUSCULAR HEMOGLOBIN 32.7 pg (27.0-32.0); MEAN CORPUSCULAR HGB CONC 33.5 g/dL (31.0-35.0); MEAN CORPUSCULAR VOLUME 98 fL (76-96); MEAN PLATELET VOLUME 10.3 fL (6.0-10.0); MONOCYTES ABSOLUTE AUTO 0.86 K/uL (0.20-0.80); MONOCYTES PERCENT AUTO 9.4 % (3.0-10.0); NEUTROPHILS ABSOLUTE AUTO 6.48 K/uL (2.00-7.50); NEUTROPHILS PERCENT AUTO 70.8 % (45.0-70.0); PLATELET COUNT,PLT 241 K/uL (150-500); RED BLOOD CELL COUNT 3.88 M/uL (3.80-5.80); RED CELL DISTRIBUTION WIDTH 12.8 % (11.0-16.0); WHITE BLOOD CELL COUNT,WBC 9.2 K/uL (4.0-11.0)
[2023-11-20 15:12] LABS: APPEARANCE,URINE CLEAR (CLEAR); BILIRUBIN,URINE NEGATIVE (NEGATIVE); COLOR,URINE YELLOW; GLUCOSE,URINE NEGATIVE (NEGATIVE); KETONES,URINE NEGATIVE (NEGATIVE); LEUKOCYTE ESTERASE,URINE NEGATIVE (NEGATIVE); NITRITE,URINE NEGATIVE (NEGATIVE); OCCULT BLOOD,URINE NEGATIVE (NEGATIVE); PH,URINE 5.5 (5.0-8.0); PROTEIN,URINE TRACE mg/dL (NEGATIVE); UROBILINOGEN,URINE 0.2 E.U./dL (0.2-1.0)
[2023-11-20 15:36] LABS: RBC,URINE NOT SEEN /HPF; SQUAMOUS EPITHELIAL CELLS,UR FEW /HPF; WBC,URINE 0-5 /HPF
[2023-11-20 15:40] LABS: A/G RATIO 0.9 (0.8-2.0); ALBUMIN 3.1 g/dL (3.4-5.0); ANION GAP 13.2 mmol/L (5.0-15.0); BILIRUBIN TOTAL 0.8 mg/dL (0.0-1.0); BUN/CREATININE RATIO 24.7 (6-25); CALCIUM 8.9 mg/dL (8.5-10.1); CARBON DIOXIDE,CO2 28.7 mmol/L (21.0-32.0); CREATININE 0.85 mg/dL (0.55-1.02); EST CRCL DRUG DOSING (CG) 43.84 mL/min; MAGNESIUM 1.8 mg/dL (1.8-2.4); POTASSIUM,K 3.9 mmol/L (3.5-5.1); PROTEIN TOTAL,TP 6.6 g/dL (6.4-8.2)
== END 2023-11-20 15:45 | disposition home or self-care (01) ==
LOC: LB.ED 13:56
DX: F32.9 Major depressive disorder, single episode, unspecified (principal); I10 Essential (primary) hypertension; E03.9 Hypothyroidism, unspecified; M19.90 Unspecified osteoarthritis, unspecified site; E78.00 Pure hypercholesterolemia, unspecified; Z79.899 Other long term (current) drug therapy; Z79.891 Long term (current) use of opiate analgesic; Z88.2 Allergy status to sulfonamides; Z88.8 Allergy status to other drugs, medicaments and biological substances
CPT/HCPCS: 36415; 80053; 81001; 83735; 84100; 85025; 99284

== ENCOUNTER 2023-11-26 04:00 | Observation (INO) | payer MEDICARE ==
[2023-11-26] MEDS ORDERED: Sodium Chloride 0.9% 250 ML IV SCH (04:33)
[2023-11-26] MEDS: Sodium Chloride 0.9% 1,000 ML IV SCH (04:45)
[2023-11-26] MEDS ORDERED: Sodium Chloride 0.9% 1,000 ML IV SCH (04:51)
[2023-11-26 04:59] LABS: BASOPHILS ABSOLUTE AUTO 0.03 K/uL (0.02-0.10); BASOPHILS PERCENT AUTO 0.2 % (0.0-0.5); EOSINOPHILS ABSOLUTE AUTO 0.18 K/uL (0.04-0.40); EOSINOPHILS PERCENT AUTO 1.3 % (1.0-5.0); HEMOGLOBIN 11.6 g/dL (11.5-16.5); LYMPHOCYTES ABSOLUTE AUTO 0.98 K/uL (1.50-4.00); LYMPHOCYTES PERCENT AUTO 6.9 % (20.0-40.0); MEAN CORPUSCULAR HEMOGLOBIN 32.4 pg (27.0-32.0); MEAN CORPUSCULAR HGB CONC 33.1 g/dL (31.0-35.0); MEAN CORPUSCULAR VOLUME 98 fL (76-96); MEAN PLATELET VOLUME 10.6 fL (6.0-10.0); MONOCYTES ABSOLUTE AUTO 0.97 K/uL (0.20-0.80); MONOCYTES PERCENT AUTO 6.8 % (3.0-10.0); NEUTROPHILS ABSOLUTE AUTO 12.04 K/uL (2.00-7.50); NEUTROPHILS PERCENT AUTO 84.8 % (45.0-70.0); PLATELET COUNT,PLT 202 K/uL (150-500); RED BLOOD CELL COUNT 3.58 M/uL (3.80-5.80); RED CELL DISTRIBUTION WIDTH 12.7 % (11.0-16.0); WHITE BLOOD CELL COUNT,WBC 14.2 K/uL (4.0-11.0)
[2023-11-26 05:13] LABS: ANION GAP 13.4 mmol/L (5.0-15.0); BUN/CREATININE RATIO 24.2 (6-25); CALCIUM 8.9 mg/dL (8.5-10.1); CARBON DIOXIDE,CO2 26.5 mmol/L (21.0-32.0); CREATININE 0.95 mg/dL (0.55-1.02); EST CRCL DRUG DOSING (CG) 39.22 mL/min; POTASSIUM,K 3.9 mmol/L (3.5-5.1)
[2023-11-26 05:29] LABS: APPEARANCE,URINE CLEAR (CLEAR); BILIRUBIN,URINE NEGATIVE (NEGATIVE); COLOR,URINE YELLOW; GLUCOSE,URINE 100 mg/dL (NEGATIVE); KETONES,URINE NEGATIVE (NEGATIVE); LEUKOCYTE ESTERASE,URINE NEGATIVE (NEGATIVE); NITRITE,URINE NEGATIVE (NEGATIVE); OCCULT BLOOD,URINE TRACE-INTACT (NEGATIVE); PH,URINE 5.5 (5.0-8.0); PROTEIN,URINE 100 mg/dL (NEGATIVE); UROBILINOGEN,URINE 0.2 E.U./dL (0.2-1.0)
[2023-11-26 05:40] LABS: EPITHELIAL CELLS,URINE OCCASIONAL /HPF; RBC,URINE 0-5 /HPF; WBC,URINE NOT SEEN /HPF
[2023-11-26] MEDS: Albuterol/Ipratropium 3.0-0.5 MG/3 ML Neb Soln NEB ONE (05:50)
[2023-11-26] MEDS: Albuterol/Ipratropium 3.0-0.5 MG/3 ML Neb Soln ONE ×2 (06:09→12:00)
[2023-11-26] MEDS: Albuterol/Ipratropium 3.0-0.5 MG/3 ML Neb Soln NEB PRN (10:43)
[2023-11-26] MEDS: LORazepam 2 MG/ML SDV IM ONE (10:52)
[2023-11-26] MEDS: LORazepam 2 MG/ML SDV ONE (12:00)
[2023-11-26] MEDS ORDERED: Sodium Chloride 0.9% 10 ML Syringe FLUSH PRN (12:23)
[2023-11-26] MEDS: Furosemide 40 MG Tab PO SCH (15:02)
[2023-11-26] MEDS: Acetaminophen 325 MG Tab PO PRN (15:02)
[2023-11-26] MEDS: Carvedilol 3.125 MG Tab PO SCH (16:15)
[2023-11-26] MEDS: Mirtazapine 15 MG Tab ONE (19:06)
[2023-11-26] MEDS: Gabapentin 100 MG Cap PO SCH (19:25)
[2023-11-26] MEDS: atorvaSTATin 80 MG Tab PO SCH (19:26)
[2023-11-26] MEDS: Ezetimibe 10 MG Tab PO SCH (19:26)
[2023-11-27] MEDS: Levothyroxine 100 MCG Tab PO SCH (07:54)
[2023-11-27] MEDS: Aspirin 81 MG Tab.Chew PO SCH (07:56)
[2023-11-27] MEDS: Multivitamin Tab PO SCH (07:57)
[2023-11-27] MEDS: FLUOXETINE 40 MG PO SCH (08:02)
[2023-11-27] MEDS: Spironolactone 25 MG Tab PO SCH (08:05)
[2023-11-27] MEDS: Losartan 25 MG Tab PO SCH (08:07)
[2023-11-27 09:19] LABS: BASOPHILS ABSOLUTE AUTO 0.03 K/uL (0.02-0.10); BASOPHILS PERCENT AUTO 0.3 % (0.0-0.5); EOSINOPHILS ABSOLUTE AUTO 0.24 K/uL (0.04-0.40); EOSINOPHILS PERCENT AUTO 2.5 % (1.0-5.0); HEMATOCRIT 36.5 % (37.0-47.0); LYMPHOCYTES ABSOLUTE AUTO 1.47 K/uL (1.50-4.00); LYMPHOCYTES PERCENT AUTO 15.4 % (20.0-40.0); MEAN CORPUSCULAR HGB CONC 32.9 g/dL (31.0-35.0); MEAN CORPUSCULAR VOLUME 97 fL (76-96); MEAN PLATELET VOLUME 10.6 fL (6.0-10.0); MONOCYTES ABSOLUTE AUTO 0.69 K/uL (0.20-0.80); MONOCYTES PERCENT AUTO 7.2 % (3.0-10.0); NEUTROPHILS PERCENT AUTO 74.6 % (45.0-70.0); PLATELET COUNT,PLT 212 K/uL (150-500); RED BLOOD CELL COUNT 3.75 M/uL (3.80-5.80); WHITE BLOOD CELL COUNT,WBC 9.5 K/uL (4.0-11.0)
[2023-11-27 09:34] LABS: A/G RATIO 0.8 (0.8-2.0); ALBUMIN 2.9 g/dL (3.4-5.0); ANION GAP 11.9 mmol/L (5.0-15.0); BILIRUBIN TOTAL 1.1 mg/dL (0.0-1.0); BUN/CREATININE RATIO 16.1 (6-25); CALCIUM 8.9 mg/dL (8.5-10.1); CARBON DIOXIDE,CO2 28.7 mmol/L (21.0-32.0); CREATININE 0.87 mg/dL (0.55-1.02); EST CRCL DRUG DOSING (CG) 42.83 mL/min; POTASSIUM,K 3.6 mmol/L (3.5-5.1); PROTEIN TOTAL,TP 6.5 g/dL (6.4-8.2)
[2023-11-27 09:43] LABS: MAGNESIUM 1.5 mg/dL (1.8-2.4)
[2023-11-27] MEDS: Furosemide 40 MG/4 ML VIAL IM ONE (17:46)
[2023-11-27] MEDS: Magnesium Oxide 400 MG Tab PO SCH (19:06)
[2023-11-27] MEDS: LORazepam 0.5 MG Tab PO PRN (19:27)
[2023-11-28 07:49] LABS: BASOPHILS ABSOLUTE AUTO 0.04 K/uL (0.02-0.10); BASOPHILS PERCENT AUTO 0.4 % (0.0-0.5); EOSINOPHILS ABSOLUTE AUTO 0.24 K/uL (0.04-0.40); EOSINOPHILS PERCENT AUTO 2.7 % (1.0-5.0); HEMATOCRIT 34.2 % (37.0-47.0); HEMOGLOBIN 11.3 g/dL (11.5-16.5); LYMPHOCYTES ABSOLUTE AUTO 1.74 K/uL (1.50-4.00); LYMPHOCYTES PERCENT AUTO 19.3 % (20.0-40.0); MEAN CORPUSCULAR HEMOGLOBIN 32.1 pg (27.0-32.0); MEAN CORPUSCULAR VOLUME 97 fL (76-96); MEAN PLATELET VOLUME 10.7 fL (6.0-10.0); MONOCYTES ABSOLUTE AUTO 1.02 K/uL (0.20-0.80); MONOCYTES PERCENT AUTO 11.3 % (3.0-10.0); NEUTROPHILS ABSOLUTE AUTO 5.99 K/uL (2.00-7.50); NEUTROPHILS PERCENT AUTO 66.3 % (45.0-70.0); PLATELET COUNT,PLT 208 K/uL (150-500); RED BLOOD CELL COUNT 3.52 M/uL (3.80-5.80); RED CELL DISTRIBUTION WIDTH 12.7 % (11.0-16.0)
[2023-11-28] MEDS: Furosemide 40 MG Tab PO SCH ×2 (08:01→15:43)
[2023-11-28 09:26] LABS: A/G RATIO 0.7 (0.8-2.0); ALBUMIN 2.6 g/dL (3.4-5.0); ANION GAP 8.5 mmol/L (5.0-15.0); BILIRUBIN TOTAL 1.1 mg/dL (0.0-1.0); BUN/CREATININE RATIO 22.4 (6-25); CALCIUM 8.8 mg/dL (8.5-10.1); CARBON DIOXIDE,CO2 29.6 mmol/L (21.0-32.0); CREATININE 0.98 mg/dL (0.55-1.02); EST CRCL DRUG DOSING (CG) 38.02 mL/min; MAGNESIUM 1.6 mg/dL (1.8-2.4); POTASSIUM,K 3.1 mmol/L (3.5-5.1); PROTEIN TOTAL,TP 6.1 g/dL (6.4-8.2)
[2023-11-28] MEDS: Potassium Chloride 10 MEQ Tab.ER PO SCH (12:54)
[2023-11-28] MEDS: LORazepam 0.5 MG Tab PO ONE (16:34)
[2023-11-29] MEDS ORDERED: FLUOXETINE 40 MG PO SCH (08:00)
== END 2023-11-28 18:00 | disposition other institution (70) ==
LOC: LB.ED 04:00 → LB.MS 11:12 → UNDOADMOB 11:15 → LB.MS 11:15
PROVIDERS: ADMIT Surgery; ATTEND Surgery
DX: S09.90XA Unspecified injury of head, initial encounter (principal); I11.0 Hypertensive heart disease with heart failure; I50.43 Acute on chronic combined systolic (congestive) and diastolic (congestive) heart failure; R45.851 Suicidal ideations; R53.1 Weakness; E87.6 Hypokalemia; E83.42 Hypomagnesemia; F41.8 Other specified anxiety disorders; J44.9 Chronic obstructive pulmonary disease, unspecified; E03.9 Hypothyroidism, unspecified; Z79.899 Other long term (current) drug therapy; Z79.82 Long term (current) use of aspirin; Z79.890 Hormone replacement therapy; W19.XXXA Unspecified fall, initial encounter; Y92.002 Bathroom of unspecified non-institutional (private) residence as the place of occurrence of the external cause
CPT/HCPCS: 36415; 70450; 71045; 80048; 80053; 81001; 82947; 83735; 83880; 85025; 87493; 93005; 93010; 94640; 96372; 99222; 99232; 99238; 99285; A0425; A0428; A9270; G0378; J1940; J2060; J7030; J7620

== ENCOUNTER 2023-11-28 18:00 | Inpatient (IN) | payer MEDICARE ==
[2023-11-28] MEDS ORDERED: Non-Formulary Medication 1 Each (Budesonide/Formoterol [Symbicort 160-4.5 Mcg Inhaler (6 G INH SCH (19:30)
[2023-11-28] MEDS ORDERED: Loperamide 2 MG Cap PO PRN (19:35)
[2023-11-28] MEDS: Gabapentin 100 MG Cap **OWN MED PO SCH (20:58)
[2023-11-28] MEDS: MAGNESIUM OXIDE 400 MG PO SCH (20:59)
[2023-11-28] MEDS: DULOXETINE 60 MG PO SCH (20:59)
[2023-11-28] MEDS: Potassium Chloride 20 MEQ Tab.ER **OWN MED PO SCH (20:59)
[2023-11-28] MEDS: Tuberculin, PPD 5 Units/0.1 ML 1 ML MDV IDERM ONE (21:00)
[2023-11-28] MEDS: ALBUTEROL INH PRN (21:06)
[2023-11-28] MEDS: Albuterol/Ipratropium 3.0-0.5 MG/3 ML Neb Soln INH SCH (21:08)
[2023-11-28] MEDS: LORazepam 0.5 MG Tab PO PRN (21:09)
[2023-11-29] MEDS ORDERED: Albuterol 0.083% 2.5 MG/3 ML Neb Soln INH SCH
[2023-11-29] MEDS: Levothyroxine 100 MCG Tab **OWN MED PO SCH (07:22)
[2023-11-29] MEDS: Aspirin 81 MG Tab.Chew PO SCH (07:47)
[2023-11-29] MEDS: Multivitamin Tab PO SCH (07:48)
[2023-11-29] MEDS: Carvedilol 3.125 MG Tab **OWN MED PO SCH (07:49)
[2023-11-29] MEDS: FLUOXETINE 20 MG PO SCH (07:49)
[2023-11-29] MEDS: SPIRONOLACTONE 25 MG PO SCH (07:50)
[2023-11-29] MEDS: Furosemide 40 MG Tab **OWN MED PO SCH (07:50)
[2023-11-29] MEDS: Acetaminophen 325 MG Tab PO PRN (19:49)
[2023-11-30 08:42] VITALS: BP 158/73; PULSE 82
== END 2023-11-30 09:06 | disposition home or self-care (01) | DRG 293 ==
LOC: LB.MS 18:00
PROVIDERS: ADMIT Registered Nurse; ATTEND Registered Nurse
DX: I11.0 Hypertensive heart disease with heart failure (principal); I50.42 Chronic combined systolic (congestive) and diastolic (congestive) heart failure; Z75.5 Holiday relief care; Z66 Do not resuscitate; E03.9 Hypothyroidism, unspecified; J44.9 Chronic obstructive pulmonary disease, unspecified; E78.00 Pure hypercholesterolemia, unspecified; I25.10 Atherosclerotic heart disease of native coronary artery without angina pectoris; M19.90 Unspecified osteoarthritis, unspecified site; K59.09 Other constipation; F41.8 Other specified anxiety disorders; J43.8 Other emphysema; Z88.2 Allergy status to sulfonamides; Z88.8 Allergy status to other drugs, medicaments and biological substances; Z79.82 Long term (current) use of aspirin; Z79.899 Other long term (current) drug therapy; Z79.890 Hormone replacement therapy; Z90.710 Acquired absence of both cervix and uterus
CPT/HCPCS: 86580; 94640; 99222; 99238; A9270-GY; J7620